=== PATIENT | female | born 1995 | race Caucasian/White ===

== ENCOUNTER 2025-09-30 13:45 | Emergency (ER) | payer BC ==
[~2025-09-30] VITALS: Ht 165.1 cm; Wt 57.2 kg
[2025-09-30 13:45] VITALS: BP 130/85
[2025-09-30] MEDS ORDERED: FLUO10CA26 (14:06)
[2025-09-30] MEDS ORDERED: SPIR25TA6 (14:06)
[2025-09-30 14:50] LABS: PLATELET COUNT (AUTO) 272 K/uL (179-408); RED BLOOD CELL COUNT(AUTO) 4.31 MIL/uL (3.63-4.92); RED CELL DISTRIBUTION WIDTH 13.2 % (12.3-17.7); WHITE BLOOD COUNT (AUTO) 6.6 K/uL (3.8-11.8)
[2025-09-30 14:52] LABS: *BILIRUBIN,URIN NEGATIVE (NEGATIVE); *BLOOD, URINE NEGATIVE (NEGATIVE); *CLARITY,URINE CLEAR (CLEAR); *KETONES,URINE NEGATIVE (NEGATIVE); *PROTEIN,URINE NEGATIVE (NEGATIVE); *UROBILINOGEN,URINE 0.2 E.U./dl (NORMAL); LEUKOCYTE ESTERASE ,URINE NEGATIVE (NEGATIVE); NITRITE, URINE NEGATIVE (NEGATIVE); UGLUCOSE NEGATIVE (NEGATIVE)
[2025-09-30 14:56] LABS: *COLOR,URINE LIGHT YELLOW (YELLOW); *URINE HCG, QUAL NEGATIVE (NEGATIVE)
[2025-09-30 14:58] LABS: CREATININE 0.7 mg/dL (0.6-1.3); SODIUM SERUM 140 mmol/L (136-145); UREA NITROGEN, BLOOD 12 mg/dL (7-18)
[2025-09-30 15:04] LABS: ASPARTATE AMINOTRANSFERASE 28 U/L (15-37); TOTAL PROTEIN, SERUM 7.8 g/dL (6.4-8.2)
[2025-09-30] MEDS ORDERED: CYANOCOBALAMIN 1000 MCG/ML VIAL ONE (15:46)
[2025-09-30] MEDS: CYANOCOBALAMIN 1000 MCG/ML VIAL IM ONE (15:55)
[2025-09-30 17:48] VITALS: BP 128/88; TEMP 98; O2SAT 99
== END 2025-09-30 16:30 | disposition home or self-care (01) ==
LOC: ER 14:20
DX: R07.89 Other chest pain (principal); R20.2 Paresthesia of skin; F41.9 Anxiety disorder, unspecified; F42.9 Obsessive-compulsive disorder, unspecified; Z79.899 Other long term (current) drug therapy
CPT/HCPCS: 99285; 71045; 80076; 80048; 81003; 82607; 84703; 83735; 85025; 84484; 36415; 93005; 96372; J3420; A4606; A4663